=== PATIENT | female | born 1995 | race Caucasian/White ===

== ENCOUNTER 2022-11-07 12:29 | Outpatient (CLI) | payer OTHER, SELFPAY ==
[2022-11-07 13:01] LABS: Basophils Percent Auto 0.2 % (0.2-1.2); Eosinophils Absolute Auto 0.1 K/mm3 (0-0.3); Eosinophils Percent Auto 0.5 % (0-4.4); Hematocrit 39.4 % (37.0-47.0); Hemoglobin 13.7 g/dL (12.0-15.0); Immature Granulocyte Absolute 0.04 K/mm3 (0.00-0.031); Immature Granulocyte Percent A 0.3 % (0-0.5); Lymphocytes Absolute Auto 2.97 K/mm3 (0.9-3.2); Lymphocytes Percent Auto 22.2 % (18.3-44.2); Mean Corpuscular HGB Conc 34.8 g/dl (32-36); Mean Corpuscular Hemoglobin 32.9 pg (26-34); Mean Corpuscular Volume 94.5 fl (80-100); Mean Platelet Volume 10.5 fl (7.4-10.4); Monocytes Absolute Auto 0.8 K/mm3 (0.1-0.6); Monocytes Percent Auto 6.2 % (2.6-8.5); Neutrophils Absolute Auto 9.4 K/mm3 (1.3-6.7); Neutrophils Percent Auto 70.6 % (45.5-73.1); Platelet Count Result 251 k/mm3 (150-375); Red Blood Count 4.17 M/mm3 (4.2-5.4); Red Cell Distribution Width 11.8 % (11.5-14.5); White Blood Count 13.4 K/mm3 (4.5-10.0)
[2022-11-07 13:50] LABS: HIV 1/2 Ab P24 Ag Result Negative (Negative)
[2022-11-07 13:57] LABS: Hepatitis B Surface Antigen Negative (Negative)
[2022-11-07 17:31] LABS: Rubella IgG Antibody > 120.0 IU/ML
[2022-11-10 08:18] LABS: Rapid Plasma Reagin Non-Reactive (NonReactive)
[2022-11-18 16:18] LABS: CF Result NEGATIVE (NEGATIVE); Ethnicity NG
== END 2022-11-07 12:30 | disposition home or self-care (01) ==
PROVIDERS: PCP Student in an Organized Health Care Education/Training Program; Visit Provider Student in an Organized Health Care Education/Training Program
DX: N91.2 Amenorrhea, unspecified (principal)
CPT/HCPCS: 36415; 81220; 84702; 85025; 86592; 86644; 86703; 86747; 86762; 86787; 86850; 87340; G0432

== ENCOUNTER 2023-01-16 16:13 | Outpatient (CLI) | payer OTHER, SELFPAY ==
--- NOTE | ~2023-01-16 | US_ITS ---
EXAMINATION: US OB /maternal detail DATE: 01/16/2023 17:31 INDICATION: survey TECHNIQUE: Real-time transabdominal obstetric ultrasound. FINDINGS: Comparison to ultrasound dated 11/14/2022 There is a single living fetus in vertex presentation. The placenta is posterior without placenta pr evia. Cervical length is 4.1 cm. cardiac activity and movement is noted with a heart rate of 145 beats per minute. T he amniotic fluid volume is subjectively normal. The following biometric data were obtained: BPD: 42mm corresponds to gestational age 18 weeks 5 days. Head circumference: 150mm corresponds to gestational age 18 weeks 0 days. Abdominal circumference: 122mm corresponds to gestational age 17 weeks 6 days. Femur length: 24mm corresponds to gestational age 17 weeks 2 days. Estimated weight: 205grams +/- 31grams, 26.1%.] The following anatomy was identified as normal: 4 chamber heart 3 vessel cord cord insertion kidneys urinary bladder stomach spine diaphragm ventricles cisterna magna cerebellum IMPRESSION: 1. Single living intrauterine in vertex presentation with an estimated gestational age of 18 weeks 0 days by current ultrasound. EDC by current ultrasound is 06/19/2023. 2. Normal survey. Reviewed, dictated and finalized at location A. IMPRESSION: 1. Single living intrauterine in vertex presentation with an estimat ed gestational age of 18 weeks 0 days by current ultrasound. EDC by current ult rasound is 06/19/2023. 2. Normal survey.
== END 2023-01-16 16:14 | disposition home or self-care (01) ==
PROVIDERS: PCP Obstetrics & Gynecology Gynecology; Visit Provider Advanced Practice Midwife
DX: Z36.9 Encounter for antenatal screening, unspecified (principal); Z3A.18 18 weeks gestation of pregnancy
CPT/HCPCS: 76805

== ENCOUNTER 2023-04-01 09:05 | Outpatient (CLI) | payer OTHER, SELFPAY ==
[2023-04-01 11:27] LABS: Hematocrit 32.4 % (37.0-47.0); Hemoglobin 11.1 g/dL (12.0-15.0)
[2023-04-01 11:36] LABS: Glucose 1 Hour PP 50gm Dose 146 mg/dL
[2023-04-01 12:14] LABS: Vitamin D 25 Hydroxy 31.3 ng/mL
[2023-04-01 12:17] LABS: HIV 1/2 Ab P24 Ag Result Negative (Negative)
== END 2023-04-01 09:06 | disposition home or self-care (01) ==
LOC: ANHLAB 09:09
PROVIDERS: Visit Provider Advanced Practice Midwife
DX: Z36.9 Encounter for antenatal screening, unspecified (principal); Z3A.00 Weeks of gestation of pregnancy not specified
CPT/HCPCS: 36415; 82306; 82947; 85014; 85018; 86703; G0432

== ENCOUNTER 2023-04-07 07:24 | Outpatient (CLI) | payer OTHER, SELFPAY ==
[2023-04-07 07:55] LABS: Glucose Fasting Gestational 91 mg/dL (>/=95)
[2023-04-07 09:12] LABS: Glucose 1 Hour Gest 132 mg/dL (>/=180)
[2023-04-07 11:34] LABS: Glucose 2 Hour Gest 105 mg/dL (>/= 155)
[2023-04-07 11:37] LABS: Glucose 3 Hour Gest 61 mg/dL (>/=140)
== END 2023-04-07 07:25 | disposition home or self-care (01) ==
PROVIDERS: Visit Provider Obstetrics & Gynecology Gynecology
DX: O99.810 Abnormal glucose complicating pregnancy (principal); Z3A.00 Weeks of gestation of pregnancy not specified
CPT/HCPCS: 36415; 82951; 82952

== ENCOUNTER 2023-06-19 17:12 | Inpatient (IN) | payer OTHER, SELFPAY ==
[2023-06-19 17:45] VITALS: BP 94/75; PULSE 105
[2023-06-19 17:46] VITALS: BP 82/57; PULSE 226
[2023-06-19 18:00] VITALS: BP 109/66; PULSE 90
[2023-06-19 18:44] LABS: Hematocrit 33.6 % (37.0-47.0); Hemoglobin 10.8 g/dL (12.0-15.0); Mean Corpuscular HGB Conc 32.1 g/dl (32-36); Mean Corpuscular Hemoglobin 28.8 pg (26-34); Mean Corpuscular Volume 89.6 fl (80-100); Platelet Count Result 326 k/mm3 (150-375); Red Blood Count 3.75 M/mm3 (4.2-5.4); Red Cell Distribution Width 13.2 % (11.5-14.5); White Blood Count 28.8 K/mm3 (4.5-10.0)
[2023-06-19 19:04] VITALS: BMI 31.8
[2023-06-19 19:06] LABS: Band Neutrophils Percent 8 % (0-6); Monocytes Absolute Manual 1.72 K/mm3 (0.1-0.90); Monocytes Percent Manual 6 % (3-9); Neutrophils Absolute Manual 24.76 K/mm3 (1.7-7.2); Neutrophils Percent Manual 78 % (46-73); Platelet Estimate Adequate (Adequate); Schistocytes None Seen (NORMAL); Total Cells Counted 100
[2023-06-19 19:07] LABS: Hypochromasia 1+ (NORMAL)
[2023-06-19 19:53] LABS: Amphetamine Screen Urine Negative (Negative); Barbiturate Screen Urine Negative (Negative); Benzodiazepines Screen Urine Negative (Negative); Cannabinoid Screen Urine Positive (Negative); Cocaine Screen Urine Negative (Negative); Methadone Screen Urine Negative (Negative); Opiate Screen Urine Negative (Negative); Phencyclidine Screen Urine Negative (Negative)
[2023-06-19] MEDS: LACTATED RINGERS 1,000 ML 125 ML IV CONT (20:26)
[2023-06-19] MEDS: OXYTOCIN 30 UNITS/NS 500 ML 30 UNITS/500 ML BAG IV CONT (20:27)
--- NOTE | 2023-06-19 23:46 | WPDANESEPP ---
Anes - Eval Pre Procedure Procedure: Labor epidural Date/Time: 06/19/23 23:46 Surgeon: Conchita Preop Diagnosis: Abdominal pain with contractions Pre Op Diagnosis: Contractions Patient Data Age: 28 Gender: F Height: 1.68 m Weight: 89.4 kg Last Vital Signs Pulse 90 06/19/23 18:00 BP 109/66 06/19/23 18:00 O2 Del Method Room Air 06/19/23 18:42 Allergies Allergy/AdvReac Type Severity Reaction Status Date / Time No Known Allergies Allergy Verified 12/04/22 15:33 Home Medications Medication Instructions Recorded Confirmed Type prenat.vits,robbie,tsb-pojp-lfaeh tablet 05/18/23 History Laboratory Tests 06/19/23 06/19/23 18:26 19:10 WBC 28.8 H K/mm3 (4.5-10.0) RBC 3.75 L M/mm3 (4.2-5.4) Hgb 10.8 L g/dL (12.0-15.0) Hct 33.6 L % (37.0-47.0) MCV 89.6 fl (80-100) MCH 28.8 pg (26-34) MCHC 32.1 g/dl (32-36) RDW 13.2 % (11.5-14.5) Plt Count 326 k/mm3 (150-375) MPV 11.0 H fl (7.4-10.4) Immature Gran % (Auto) Not Reportable Neut % (Auto) Not Reportable Lymph % (Auto) Not Reportable [place] % (Auto) Not Reportable Eos % (Auto) Not Reportable Baso % (Auto) Not Reportable Lymph # (Auto) Not Reportable [place] # (Auto) Not Reportable Eos # (Auto) Not Reportable Baso # (Auto) Not Reportable Abs Immat Gran (auto) Not Reportable Absolute Neuts (auto) Not Reportable Absolute Nucleated RBC Not Reportable Total Counted 100 Neutrophils % (Manual) 78 H % (46-73) Band Neutrophils % 8 H % (0-6) Lymphocytes % (Manual) 8.0 L % (18-44) Monocytes % (Manual) 6 % (3-9) Nucleated RBC % Not Reportable Abs Neuts (Manual) 24.76 H K/mm3 (1.7-7.2) Abs Lymphs (Manual) 2.30 K/mm3 (1.1-4.5) Abs Monocytes (Manual) 1.72 H K/mm3 (0.1-0.90) Platelet Estimate Adequate (Adequate) Hypochromasia 1+ (NORMAL) Schistocytes None seen (NORMAL) Urine Opiates Screen Negative (Negative) Urine Methadone Screen Negative (Negative) Ur Barbiturates Screen Negative (Negative) Ur Phencyclidine Scrn Negative (Negative) Ur Amphetamine Screen Negative (Negative) U Benzodiazepines Scrn Negative (Negative) Urine Cocaine Screen Negative (Negative) U Cannabinoids Screen Positive A (Negative) RPR Pending Blood Type O Positive Antibody Screen Negative : gestational age HCG: positive Patient hx anesthesia problems: none Family hx anesthesia problems: none Results Review: All pre-operative results and documents have been reviewed as part of the pre-operative evaluation. [facility] Past Medical History Medical History Overweight (BMI 25.0-29.9) and not yet delivered Surgical History Surgical History History of placement of ear tubes Hx of tonsillectomy Family History Family History Other Patient denies significant medical history Social History Social History Smoking status: Former smoker Alcohol intake: current Alcohol use details: occasional Substance use: never Substance use type: marijuana Lack of Transportation: No Lack of Food: Never True Current Housing: I Have Housing Concerned About Future Housing: No Difficulty Paying Gas/Electric Bills: No Difficulty Paying for Meds: No Currently Unemployed: No Education: Trade/Vocational Certificate Difficulty w/ Childcare or Family Care: No Living arrangements: other Additional living arrangements comments: boyfriend Occup
[2023-06-19 23:50] VITALS: PULSE 103; O2SAT 100
[2023-06-19 23:53] VITALS: BP 134/79; PULSE 108
[2023-06-19 23:55] VITALS: PULSE 105; O2SAT 100
[2023-06-20] VITALS (189 sets, daily range): BP systolic 74–148; BP diastolic 30–102; PULSE 64–189; RESP 16; TEMP 36.7–38.3; O2SAT 95–100
[2023-06-20] MEDS: AMPICILLIN 2 GM/NS 100 ML 2 GM/100 ML BAG IVPB (03:49)
[2023-06-20] MEDS: ONDANSETRON INJ 4 MG/2 ML VIAL IV PUSH (03:53)
[2023-06-20] MEDS: ACETAMINOPHEN 500 MG TABLET 1000 MG PO (06:27)
[2023-06-20] MEDS: LACTATED RINGERS 1,000 ML 125 ML IV CONT (06:56)
[2023-06-20] MEDS: AMPICILLIN 1 GM/NS 50 ML 1 GM/50 ML BAG IVPB (07:13)
[2023-06-20] MEDS: SODIUM CHLORIDE 0.9% IV 300 ML 600 ML I-UTERINE (07:18)
--- NOTE | 2023-06-20 08:24 | PM.IMHP ---
H&P: HPI History of Present Illness Date/Time: 06/20/23 08:24 Chief Complaint: Intrauterine at term spontaneous rupture of membranes Narrative: 28 yo G1 at 40w5d who presented with spontaneous rupture of membranes. Her has been uncomplicated thus far. Review of Systems Cardiovascular: Cardiovascular: Denies chest pain, Denies leg edema, Denies palpitations, Denies dyspnea and Denies dyspnea on exertion Respiratory: Respiratory: Denies cough, Denies dyspnea and Denies dyspnea on exertion Gastrointestinal: Gastrointestinal: Denies abdominal pain, Denies constipation, Denies diarrhea, Denies nausea and Denies vomiting Genitourinary: Genitourinary: Denies hematuria, Denies urinary frequency, Denies dysuria, Denies pelvic pain, Denies urinary incontinence and Denies vaginal discharge Neurologic: Reports system reviewed and no additional complaints, except as documented Psychiatric: Psychiatric: Reports no additional psychiatric complaints Endocrine: Endocrine: Denies palpitations PMFSH Past Medical History Medical History Overweight (BMI 25.0-29.9) and not yet delivered Surgical History Surgical History History of placement of ear tubes Hx of tonsillectomy Family History Family History Other Patient denies significant medical history Social History Social History Smoking status: Former smoker Alcohol intake: current Alcohol use details: occasional Substance use: never Substance use type: marijuana Lack of Transportation: No Lack of Food: Never True Current Housing: I Have Housing Concerned About Future Housing: No Difficulty Paying Gas/Electric Bills: No Difficulty Paying for Meds: No Currently Unemployed: No Education: Trade/Vocational Certificate Difficulty w/ Childcare or Family Care: No Living arrangements: other Additional living arrangements comments: boyfriend Occupation/Education: occupation Gender identity (if verbalized by the patient): Female Sexual Orientation (if Verbalized by the Patient): Straight or Heterosexual Spiritual care concerns: No Meds Home Medications and Allergies Home Medications Medication Instructions Recorded Confirmed Type prenat.vits,robbie,dhj-tepj-pznaz tablet 05/18/23 History Allergies Allergy/AdvReac Type Severity Reaction Status Date / Time No Known Allergies Allergy Verified 12/04/22 15:33 Vital Signs Vital Signs - 24 hr 06/19/23 17:45 06/19/23 17:46 06/19/23 18:00 Temperature Pulse Rate 105 H 226 H 90 Blood Pressure 94/75 L 82/57 L 109/66 Pulse Oximetry Oxygen Delivery 06/19/23 23:50 06/19/23 23:53 06/19/23 23:55 Temperature Pulse Rate 108 H Blood Pressure 134/79 Pulse Oximetry 100 100 Oxygen Delivery 06/20/23 00:00 06/20/23 00:03 06/20/23 00:05 Temperature Pulse Rate 84 81 Blood Pressure 123/61 117/64 Pulse Oximetry 99 96 Oxygen Delivery 06/20/23 00:08 06/20/23 00:10 06/20/23 00:13 Temperature Pulse Rate 89 82 83 Blood Pressure 114/70 115/70 124/64 Pulse Oximetry 97 Oxygen Delivery 06/20/23 00:15 06/20/23 00:18 06/20/23 00:20 Temperature Pulse Rate 89 81 84 Blood Pressure 102/60 102/76 117/67 Pulse Oximetry 97 97 Oxygen Delivery 06/20/23 00:23 06/20/23 00:25 06/20/23 00:30 Temperature Pulse Rate 79 75 89 Blood Pressure 74/50 L 112/64 122/83 Pulse Oximetry 98 98 Oxygen Delivery 06/20/23 00:35 06/20/23 00:40 06/20/23 00:45 Temperature Pulse Rate 91 Blood Pressure 120/73 Pulse Oximetry 98 97 98 Oxygen Delivery 06/20/23 00:50 06/20/23 00:55 06/20/23 01:00 Temperature Pulse Rate 79 Blood Pressure 115/60 Pulse Oximetry 98 96 96 Oxygen Delive
--- NOTE | 2023-06-20 09:49 | PM.OBPRVD ---
OB - Vaginal Delivery Note Procedure Delivery date: 06/20/23 Induction method: None Delivery augmentation: Pitocin Delivery monitor: External FHT and Internal Uterine Route of delivery: Laceration Description: Vaginal (bilateral) Delivery repair: vicryl Specimen: Yes (placenta) Quantitative Blood Loss (ml): 150 Anesthesia type: Epidural Disposition: Floor Complications: No immediate complications Narrative: Patient pushed for a spontaneous vaginal delivery. The fetus was delivered atraumatically and placed on the maternal abdomen. The cord was clamped and cut after 1 minute of life. The cord was double clamped and cut and a segment of cord was collected for cord gases. Cord blood was collected for blood type and Coomb's testing. The placenta delivered spontaneously and was noted to be intact. The perineum was inspected and there were no perineal lacerations noted. There were bilateral vaginal lacerations. The lacerations were repaired with 3-0 vicryl in the usual fashion. The uterus was firm and good hemostasis was noted. The patient and fetus were stable in the delivery room. [place] Baby Date of : 06/20/23 Time of : 09:29 Weeks of gestation at delivery: 40 Infant gender: Female presentation: vertex position: Right Occiput Posterior Placenta delivery description: Spontaneous Cord Vessel Description: 3 Vessels score one minute: 8 score five minutes: 9 AMG Delivery Billing Delivery Delivery: Delivery Charge
[2023-06-20] MEDS: OXYTOCIN 30 UNITS/NS 500 ML 30 UNITS/500 ML BAG 125 UNITS IV CONT (10:01)
[2023-06-20] MEDS: WITCH HAZEL 40 PADS 1 PAD TOPICAL (12:37)
[2023-06-20] MEDS: BENZOCAINE 20% AER SPR (*SP) 56 GM CAN 1 SPRAY TOPICAL (12:37)
--- NOTE | 2023-06-20 13:00 | PC.NURSE ---
Patient transferred to post room #291 via wheelchair. Support person present. Oriented to unit, room, information board, rooming in, admission packet and security measures. Patient verbalizes understanding.
[2023-06-20] MEDS: ACETAMINOPHEN 325 MG TABLET 650 MG PO ×2 (13:29→18:25)
[2023-06-20] MEDS: IBUPROFEN 600 MG TABLET PO (23:49)
[2023-06-21 04:30] VITALS: BP 101/60; PULSE 76; RESP 16; TEMP 37.1; O2SAT 97
[2023-06-21 04:45] LABS: Hematocrit 30.4 % (37.0-47.0); Hemoglobin 9.9 g/dL (12.0-15.0)
[2023-06-21] MEDS: MULTIVIT/MIN/PREN/FOL AC/IRON TABLET 1 TAB PO (07:00)
[2023-06-21] MEDS: POLYSACCHARIDE IRON COMPLEX 150 MG CAPSULE PO ×2 (07:00→16:10)
[2023-06-21] MEDS: ACETAMINOPHEN 325 MG TABLET 650 MG PO ×2 (07:00→16:09)
[2023-06-21] MEDS: DOCUSATE SODIUM 100 MG CAPSULE PO ×2 (07:00→16:10)
[2023-06-21 07:05] VITALS: BP 105/60; PULSE 79; RESP 16; TEMP 36.7; O2SAT 98
--- NOTE | 2023-06-21 08:19 | PM.OBPNVD ---
OB - PN: Subj Subjective Date/time seen: 06/21/23 08:19 Patient comments: no complaints, pain well controlled and tolerating diet [place] feeding status: exclusively breast feeding Narrative: patient doing well this AM. No complaints. Pain is well controlled. She reports minimal bleeding. She is ambulating and voiding without difficulty. She is tolerating PO. She denies N/V, fever, chills. OB - PN: Obj Data Labs 06/21/23 04:12 Labs: Laboratory Results - last 24 hr 06/21/23 04:12 Hgb 9.9 L Hct 30.4 L OB - PN A/P Plan day: 1 Plan: routine care Comments: patient doing well H/H pain is controlled denies any bleeding issues continue routine care Time Spent With Patient Time: Total time spent is greater than 50% in coordination of care (as documented) at patient's floor/unit and/or counseling patient: Time with patient: less than 15 minutes Review of Systems Review of Systems: All systems reviewed & are unremarkable except as noted in HPI and below Exam Const: General: comfortable and no acute distress Resp: Effort & Inspection: normal respiratory effort Cardio: Rate: regular rate GI: GI Palp: Yes Soft to palpation and No Tenderness to palpation present (GI) Auscultation: normal bowel sounds Other: fundus firm and below umbilicus. Psych: Affect: normal affect
--- NOTE | 2023-06-21 09:43 | WPDANLDPN2 ---
Anes-Prog Note L&D Date/Time: 06/21/23 09:43 Comfortable throughout: labor and delivery Neuraxial method: epidural Epidural/Spinal procedure site: tender Neuro status: Neuro function grossly intact. Cardiovascular status: normal Respiratory status: normal Airway patency: baseline Mental status: baseline Post-Op hydration status: normal Vital Signs: Last Vital Signs Temp 98.7 F 06/21/23 04:30 Pulse 76 06/21/23 04:30 Resp 16 06/21/23 04:30 BP 101/60 06/21/23 04:30 Pulse Ox 97 06/21/23 04:30 O2 Del Method Room Air 06/20/23 20:30 Pain score (VAS): 0 Post-procedural complaints: none Patient feedback: Patient satisfied with anesthetic care.
[2023-06-21] MEDS: IBUPROFEN 600 MG TABLET PO ×2 (10:30→20:02)
[2023-06-21 20:00] VITALS: BP 115/74; PULSE 68; RESP 16; TEMP 37
[2023-06-22] MEDS: ACETAMINOPHEN 325 MG TABLET 650 MG PO ×2 (00:45→09:04)
[2023-06-22] MEDS: IBUPROFEN 600 MG TABLET PO (05:03)
[2023-06-22 08:13] LABS: Rapid Plasma Reagin Non-Reactive (NonReactive)
--- NOTE | 2023-06-22 08:48 | PM.OBPNVD ---
OB - PN: Subj Subjective Date/time seen: 06/22/23 0730 Interval history: Doing well. Urinating without difficulty. Denies passing any large clots. Denies dizziness with ambulating. Tolerating po food and fluids. Bonding with infant. Reports latched well initially but had trouble yesterday. Per apparatus engineering technologist note-parents declining Vitamin K. Discussed risks/benefits of not vaccinating vs getting Vit K. Discussed risk of brain and GI bleed as well as other risks of not having Vit K including . Discussed unknown benefit of giving at 48 hours of life. Parents will consider. Patient comments: pain well controlled baby status: doing well and nursing well [place] feeding status: exclusively breast feeding OB - PN: Obj Data Labs 06/21/23 04:12 Labs: Laboratory Results - last 24 hr 06/19/23 18:26 RPR Non-reactive OB - PN A/P Assessment and Plan (1) (normal spontaneous vaginal delivery): Code(s): O80 - Encounter for full-term uncomplicated delivery Status: Acute (2) Patient is a currently breast-feeding mother: Code(s): Z39.1 - Encounter for care and examination of lactating mother Status: Acute Plan day: 2 Plan: discharge home Time Spent With Patient Time: Total time spent is greater than 50% in coordination of care (as documented) at patient's floor/unit and/or counseling patient: Review of Systems Review of Systems: All systems reviewed & are unremarkable except as noted in HPI and below Exam Narrative: Alert and oriented. Mood is pleasant and cooperative. Perineum with minimal edema. Fundus firm and below umbilicus. Const: General: cooperative, healthy appearing, no acute distress and alert Orientation/consciousness: patient oriented x3 Limitations: no limitations Resp: Effort & Inspection: normal respiratory effort and able to speak in complete sentences Auscultation: clear to auscultation bilaterally Cardio: Rate: regular rate GI: Inspection: normal to inspection Auscultation: normal bowel sounds : General: Yes bladder normal to palpation Bimanual exam- vagina & uterus: bladder normal to palpation OB/external & speculum: vaginal bleeding Other: Fundus firm and below U Skin: General skin exam: normal color and no rashes or lesions noted Neuro: General: patient oriented x3 and moves all extremities Cognition (Neuro): normal cognition Extrem: General: normal to inspection and no calf tenderness Psych: Appearance: grossly normal Mental Status: mental status grossly normal Affect: normal affect Thought process: Normal thought process present
[2023-06-22 09:00] VITALS: BP 111/69; PULSE 81; RESP 16; TEMP 37.1; O2SAT 98
[2023-06-22] MEDS: POLYSACCHARIDE IRON COMPLEX 150 MG CAPSULE PO (09:04)
[2023-06-22] MEDS: DOCUSATE SODIUM 100 MG CAPSULE PO (09:04)
[2023-06-22] MEDS: MULTIVIT/MIN/PREN/FOL AC/IRON TABLET 1 TAB PO (09:04)
--- NOTE | 2023-06-22 13:16 | PC.NURSE ---
[id number] Introductions were made, then consulted with patient to assess needs related to . Mother led the conversation with her?plans to feed?her infant and the?experience so far. Mother works well with her with encouragement and education. Encouraged understanding of the benefits of skin to skin (demonstrating unwrapping and placing upright on her chest), stimulating with massage touch, changing positions to encourage wakefulness, how to watch for early feeding cues, responsive feeding, feeding on demand (aiming for 8-12 times in 24 hours, about every 2-3 hours), milk production, building/maintaining a milk supply, duration of feeding, signs of adequate intake/output and how to record on the feeding sheet. Reviewed positioning and ear, shoulder, hip alignment, supporting the breast to facilitate a deep latch, asymmetrical latch (off-center), leading with the chin with a big, open, wide gape and body close to mother. Infant latched optimally to the right and left breast in football, cross cradle, laid-back position. Education given to mother of how to visualize suck/swallow ratios and listen for drinking at the breast. was able to maintain latch without discomfort to mother with exception to times where infant would latch or pull back and suckle on the nipple. Nipple care reviewed with optimal latch and good positioning. Reminding mother of comfort measures of healing with a warm and wet washcloth to rinse breast, then leave open to air-dry as needed. Reviewed good handwashing when or touching the breast/nipples, engorgement, plugged ducts to prevent infection. Resources used to facilitate learning were used with the mom and baby guide. Mother voiced understanding of skin to skin, stimulating with massage touch, responsive feedings, hand expressed colostrum, talking to to encourage if it has been 2 -2.5 hours since the start of the last , to call if infant does not latch, or if there is discomfort with . Resources provided for inpatient/outpatient with feeding sheet, name on the communication board and the mom/baby guide. Mother voiced understanding of information, demonstrated learning and will call if there is a request for assistance. Reported to the Primary RN.
--- NOTE | 2023-06-22 13:34 | PC.NURSE ---
Patient viewed the discharge video Mother & Baby Care, The First Two Weeks . Patient was given the opportunity and encouraged to ask questions. Patient verbalized understanding of information shared and has been given the mother/baby guide for home reference.
[2023-06-23 10:41] VITALS: BP 112/73; PULSE 79; RESP 18; TEMP 36.6; O2SAT 100
--- NOTE | 2023-06-23 13:11 | PC.NURSE ---
1100- upon assessment of baby, parents have stated that baby was crying all night long. Asked question of how often baby is nursing and for how long. mom states that she decided to stop placing baby to breast overnight, now pumping and feeding baby. Mom states that baby was getting 4 ml of Colostrum every 2-3 hours overnight and this morning. baby weighed and loss of 10.18% was found. Baby also has not had a stool in [address] Salazar, orders for baby to start on formula, about 30 mls every 2-3 hours, and increase as needed. Mom may also give pumped colostrum/breastmilk. Baby has a visual presentation manager appointment with Dr. Guerra today at [address] Salazar, primary care provider to continue care at this time.
--- NOTE | 2023-07-08 13:49 | P.PNOB_ITS ---
OB - Triage/Final Diagnosis Visit Information Date of evaluation: 06/20/23 Reason for evaluation: threatened labor Comments/Additional reasons for admission: I have assessed the risk for this patient, Cadence Sharma, and determined that she would benefit from observation care. Evaluation Laboratory results: Laboratory Tests 06/19/23 06/19/23 06/21/23 18:26 19:10 04:12 WBC 28.8 H RBC 3.75 L Hgb 10.8 L 9.9 L Hct 33.6 L 30.4 L MCV 89.6 MCH 28.8 MCHC 32.1 RDW 13.2 Plt Count 326 MPV 11.0 H Immature Gran % (Auto) Not Reportable Neut % (Auto) Not Reportable Lymph % (Auto) Not Reportable [place] % (Auto) Not Reportable Eos % (Auto) Not Reportable Baso % (Auto) Not Reportable Lymph # (Auto) Not Reportable [place] # (Auto) Not Reportable Eos # (Auto) Not Reportable Baso # (Auto) Not Reportable Abs Immat Gran (auto) Not Reportable Absolute Neuts (auto) Not Reportable Absolute Nucleated RBC Not Reportable Total Counted 100 Neutrophils % (Manual) 78 H Band Neutrophils % 8 H Lymphocytes % (Manual) 8.0 L Monocytes % (Manual) 6 Nucleated RBC % Not Reportable Abs Neuts (Manual) 24.76 H Abs Lymphs (Manual) 2.30 Abs Monocytes (Manual) 1.72 H Platelet Estimate Adequate Hypochromasia 1+ Schistocytes None seen Urine Opiates Screen Negative Urine Methadone Screen Negative Ur Barbiturates Screen Negative Ur Phencyclidine Scrn Negative Ur Amphetamine Screen Negative U Benzodiazepines Scrn Negative Urine Cocaine Screen Negative U Cannabinoids Screen Positive A RPR Non-reactive Blood Type O Positive Antibody Screen Negative
--- NOTE | 2023-07-09 10:48 | PM.OBDSVD ---
DS: Admitting Diagnosis Discharge Date 06/22/23 Admitting Diagnosis intrauterine at term spontaneous rupture of membranes DS: Discharge Diagnosis Discharge Diagnosis (1) (normal spontaneous vaginal delivery): Code(s): O80 - Encounter for full-term uncomplicated delivery Status: Acute OB - DS: Summary OB Procedures : None OB Procedures Intrapartum: Spontaneous Vag Delivery OB Procedures: : None Peripartum Data Laceration Description: Vaginal (bilateral) Status at Discharge Functional status at discharge: independent ambulation Overall status at discharge: patient is back to baseline Time Spent with Patient Time attestation: Total time spent providing and/or coordinating discharge services: Time spent: Less than 30 minutes Exam Const: General: comfortable and no acute distress Resp: Effort & Inspection: normal respiratory effort Auscultation: clear to auscultation bilaterally Cardio: Rate: regular rate GI: GI Palp: Yes Soft to palpation Auscultation: normal bowel sounds Other: Fundus firm below umbilicus Psych: Appearance: grossly normal Mental Status: mental status grossly normal Affect: normal affect DS: Data Data Completed and Pending Completed studies during hospitalization: Pending at discharge 06/20/23 10:56 Surgical [PTH] Routine Discharge Plan Discharge Attending physician on discharge: Stacy Arango Consulting providers: Dayami Hastings; Freddy Dennis; Rachel Draper Discharging Clinician: Dayami Hastings Anticipated Discharge Date/Time: 06/22/23 11:53 Patient Disposition: Home, Self-Care Activity: may shower and pelvic rest Diet: as tolerated and regular Wound Care Instructions: follow printed instructions Discharge Instructions: Education: Mom and Baby Guide Given to: Mother Follow-Up: Call your delivering provider's office for an appointment to be seen in: 6 Weeks Mom and baby should come to the [facility] for the follow-up appointment. Appointment Date/Time: June 23, 2023 at 11:00 am What to expect at your follow-up visit: Blood Pressure Check Physical Assessment Call [phone] if you are unable to keep your appointment time. BREAST CARE: * Wear a snug supportive bra. * For engorgement discomfort: Breast Feeding: * Apply warm moist washcloths * Express milk as needed to relieve engorgement * Wear loose clothing Bottle Feeding: * May apply ice packs * For sore nipples: * Identify correct latch-on * Apply warm moist washcloths before and after nursing * Air dry nipples after nursing * May apply Lansinoh cream to nipples EPISIOTOMY/PERINEAL CARE: * Until bleeding stops, use your dana bottle after urinating * Change your pad frequently throughout the day * You may take sitz baths several times a day (fill your bathtub with warm water and soak for 20 minutes.) Do NOT bathe in the water * No tub baths until seen by your physician - You may shower ACTIVITY: * Rest as much as possible. * Do not exercise or lift anything heavier than your baby (such as laundry or other children.) * Avoid stairs or driving as much as possible. * Do not put anything into the vagina. No douching, tampons, or sexual activity until seen by physician. NOTIFY PHYSICIAN IF YOU HAVE ANY QUESTIONS OR IF ANY OF THE FOLLOWING SYMPTOMS OCCUR: * If your episiotomy or incision becomes red, swollen, or more painful than what you have experienced in the hospital. * If your vaginal bleeding becomes foul smelling. * If your vaginal bleeding becomes more heavy than a period or if your bleeding changes from pink to bright red. However, you may pass an occasional walnut-sized clot once or twice for the first week . * If you experience a sharp, shooting pain in you calves. * If you discover a hard, reddened area on your breas
== END 2023-06-22 14:18 | disposition home or self-care (01) | DRG 560 ==
LOC: ANHOB2 06-22 12:17 → ANHLDR 06-23 08:32 → ANHOB2 06-23 08:32
PROVIDERS: Admitting Provider Student in an Organized Health Care Education/Training Program; Visit Provider Student in an Organized Health Care Education/Training Program
DX: O42.92 Full-term premature rupture of membranes, unspecified as to length of time between rupture and onset of labor (principal); Z37.0 Single live birth; O70.0 First degree perineal laceration during delivery; O77.0 Labor and delivery complicated by meconium in amniotic fluid; Z3A.40 40 weeks gestation of pregnancy; Z87.891 Personal history of nicotine dependence
CPT/HCPCS: 36415; 80307; 84112; 85014; 85018; 85025; 86592; 86850; 86900; 86901; 88307; A9270; J0290; J2405; J2590; J2795; J7030; J7120